=== PATIENT | male | born 1960 | race Caucasian/White ===

== ENCOUNTER 2022-03-13 12:01 | Emergency (ER) | payer SELFPAY ==
--- NOTE | 2022-03-13 12:11 | XRR_ITS ---
PROCEDURE INFORMATION: Exam: XR Right Ankle Exam date and time: 03/13/2022 12:27 PM Age: 61 years old Clinical indication: Injury or trauma; Other: Tree fell on PT; Blunt trauma; Ankle; Right TECHNIQUE: Imaging protocol: Radiologic exam of the Right ankle. Views: 3 or more views. Total images: 3 COMPARISON: No relevant prior studies available. FINDINGS: Bones/joints: Segmental fracture of distal right fibular diaphysis half a shaft's with anterior displacement of the distal fragment. Nondisplaced posterior malleolar fracture. No additional fracture, subluxation, or dislocation detected. Chronic avulsive changes are noted at the medial malleolus. A heel spur is present. Soft tissues: Anterior and lateral soft tissue swelling is evident. XR/XR ankle RT min 3V* [id number] IMPRESSION: 1. Segmental fracture of distal right fibular diaphysis half a shaft's with anterior displacement of the distal fragment. 2. Anterior and lateral soft tissue swelling is evident. 3. Nondisplaced posterior malleolar fracture.
--- NOTE | 2022-03-13 12:11 | CT_ITS ---
WS: [id number] CT CERVICAL TRAUMA TECHNIQUE: Noncontrast CT of the cervical spine with coronal and sagittal reformatted images. CLINICAL INFORMATION: trauma COMPARISON: None. DLP: 1493.[address] scans at [facility] use at least one of these dose optimization techniques: automated e xposure control; mA and/or kV adjustment per patient size (includes targeted exams where dose is matc hed to clinical indication); or iterative reconstruction. FINDINGS: Straightening of the normal cervical lordosis. Slight anterolisthesis C4 on C5 and C5 on C6. Mild spo ndylitic changes. Normal craniocervical junction. Normal C1-C2 articulation. Dens is normal in appear ance. Normal occipital condyles. No high-grade spinal canal narrowing. Normal C1 ring. No evidence of acute fracture or dislocation. Normal prevertebral soft tissues. Mastoids air cells are well aerated. CT/CT cervical spin wo con* [id number] IMPRESSION: No evidence of acute fracture or dislocation.
--- NOTE | 2022-03-13 12:11 | CT_ITS ---
WS: [id number] CT HEAD TECHNIQUE: Noncontrast CT of the head obtained from the skullbase to the vertex. CLINICAL INFORMATION: trauma COMPARISON: None. DLP: 1493.[address] scans at [facility] use at least one of these dose optimization techniques: automated e xposure control; mA and/or kV adjustment per patient size (includes targeted exams where dose is matc hed to clinical indication); or iterative reconstruction. FINDINGS: No evidence of intracranial hemorrhage or mass effect. Ventricular system and basal cisterns are weiss nt. Minimal small vessel changes. No significant parenchymal volume loss. No extra-axial fluid collec tions. No evidence of mass or mass effect. Normal alfaro-white differentiation. Paranasal sinuses and mastoid air cells are well aerated. . Left ear laceration. CT/CT head wo con* [id number] IMPRESSION: 1. No evidence of intracranial hemorrhage or mass effect. 2. Minimal small vessel changes. No significant parenchymal volume loss. 3. No acute intracranial findings.
--- NOTE | 2022-03-13 12:11 | XRR_ITS ---
PROCEDURE INFORMATION: Exam: XR Right Tibia and Fibula Exam date and time: 03/13/2022 12:27 PM Age: 61 years old Clinical indication: Injury or trauma; Other: Tree fell on PT; Blunt trauma; Lower leg; Right TECHNIQUE: Imaging protocol: Radiologic exam of the Right tibia and fibula. Views: 2 views. Total images: 2 COMPARISON: No relevant prior studies available. FINDINGS: Bones/joints: Segmental fracture of distal diaphysis of right fibula with approximately 1/2 shaft's width displacement of the distal fragment. Mild marginal osteophytes are noted. Soft tissues: Lateral soft tissue swelling is evident. XR/XR tibia fibula RT 2V [id number] IMPRESSION: 1. Segmental fracture of distal diaphysis of right fibula with approximately 1/2 shaft's width displacement of the distal fragment. 2. Lateral soft tissue swelling is evident.
[2022-03-13 12:41] VITALS: RESP 16; O2SAT 97
[2022-03-13] MEDS: HYDROmorphone 1 mg/mL INJ 1 mL IVP ×2 (12:41→13:45)
[2022-03-13] MEDS: ondansetron 2 mg/ML SDV 2 mL 4 MG IVP (12:45)
[2022-03-13] MEDS: tetanus-dipt-pertussis 0.5 mL SDV IM (12:45)
--- NOTE | 2022-03-13 12:46 | PC.NURSE ---
DR. [place] APPROVED ADMINISTRATION OF HYDROMORPHONE AFTER PT VERBALIZED HYDROCODONE ALLERGY
[2022-03-13] MEDS: lidocaine 1% INJ 20 mL MDV (mL) INTRADERMA (12:52)
--- NOTE | 2022-03-13 12:52 | PC.NURSE ---
LIDOCAINE ADMINISTERED BY [facility]
--- NOTE | 2022-03-13 12:55 | ED_ITS ---
HPI - General Adult General: Chief complaint: Trauma Stated complaint: Tree fell on him Time Seen by Provider: 03/13/22 12:09 Source: patient Mode of arrival: ambulatory Limitations: no limitations History of Present Illness: 61-year-old male states he was working cutting down a tree states that portion a tree and fell onto him and fell onto his left side hitting left side of the head does have a laceration states he then rolled and hit his right leg. He has deformity his right lower leg states the main pain is in his right lower leg he rates it an 8 out of 10 he has some slight neck pain denies any chest or abdominal pain denies any hip pain. Associated symptoms: Reports headache(s); Deny chest pain, dyspnea, nausea, rash or vomiting Review of Systems Const: Denies: fever(s), chills, body aches or change in appetite Eyes: Denies: blurry vision or eye discomfort ENMT: Denies: throat pain or dental pain Card: Denies: chest pain Resp: Denies: dyspnea GI: Denies: abdominal pain, nausea, vomiting or diarrhea : Denies: dysuria Musc: Reports: neck pain and extremity pain; Denies: back pain Skin/Breast: Denies: rash Neuro: Reports: headache(s) Psych: Denies: depression Tomi/Lymph: Denies: easy bruising All/Imm: Denies: urticaria PFSH ED PFSH: Medical History (Updated 03/13/22 @ 13:41 by Familia Guzman MD) No pertinent family history Social History (Updated 03/13/22 @ 12:57 by Familia Guzamn MD) Substance/Drug Use: never Physical Exam Const: COMMON NORMALS: no acute distress, patient oriented x3 and healthy appearing HENMT: OTHER: Laceration noted to left earlobe Eye: COMMON NORMALS: Equal, round and reactive pupils present and EOMs intact bilaterally PUPIL: Yes Equal, round and reactive pupils present Neck/C-Spine: COMMON NORMALS: full ROM and supple Chest: COMMONS NORMALS: normal inspection of the chest and normal palpation of entire chest wall Resp: COMMON NORMALS: normal respiratory effort, No retractions, No use of accessory muscles and clear to auscultation bilaterally AUSCULTATION: clear to auscultation bilaterally Cardio: COMMON NORMALS: regular rate, regular rhythm and No murmurs present (Cardio) RATE: regular rate RHYTHM: regular rhythm GI: COMMON NORMALS: Normal to inspection, nondistended, normoactive bowel sounds present, Soft to palpation, non-tender and no masses PALPATION: Yes Soft to palpation Extremity: COMMON NORMALS: full ROM NARRATIVE EXTREMITY EXAM: Obvious deformity to distal right lower leg no signs of compartment syndrome compartments are soft distal pulses intact Neuro: COMMON NORMALS: patient oriented x3, moves all extremities and no focal motor deficits Psych: COMMON NORMALS: mental status grossly normal, Normal thought process pr esent and cooperative THOUGHT PROCESS: Normal thought process present Skin: COMMON NORMALS: no rashes or lesions noted and no wounds GENERAL SKIN EXAM: no rashes or lesions noted Course Vital Signs: Vital signs: Vital Signs Temperature 97.8 F 03/13/22 13:08 Pulse Rate 60 03/13/22 13:08 Respiratory Rate 16 03/13/22 13:08 Blood Pressure 214/110 03/13/22 13:08 Pulse Oximetry 97 03/13/22 13:08 Oxygen Delivery Me thod 03/13/22 13:08 [facility] - General Adult Medical Decision Making Patient presents here with fibula fracture after tree fell and he also had a laceration to his left ear that was repaired here CT scans are normal spoke to orthopedist we will place patient in a walking boot he is to be nonweightbearing until he follows up with orthopedics he has crutches at home. Lab Data Radiology Impressions Ankle X-Ray 03/13/22 12:11 IMPRESSION: 1. Segmental fracture of distal right fibular diaphysis half a shaft's with anterior displacement of the distal fragment. 2. Anterior and lateral soft tissue swelling is evident. 3. Nondisplaced posterior malleolar fracture. Cervical Spine CT 03/13/22 12:11 IMPRESSION: No evidence of acute fracture or dislocation. Head CT 03/13/22 12:11 IMPRESSION: 1. No evidence of intracranial hemorrhage or mass effect. 2. Minimal small vessel changes. No significant parenchymal volume loss. 3. No acute intracranial findings. Tibia/Fibula X-Ray 03/13/22 12:11 IMPRESSION: 1. Segmental fracture of distal diaphysis of right fibula with approximately 1/2 shaft's width displacement of the distal fragment. 2. Lateral soft tissue swelling is evident. Discharge Plan Discharge Patient Disposition: Home Clinical Impression: Head injury, Laceration of ear Closed fibular fracture Qualifiers: Encounter type: initial encounter Fibula location: distal Fracture morphology: unspecified fracture morphology Laterality: right Qualified Code(s): S82.831A - Other fracture of upper and lower end of right fibula, initial encounter for closed fracture Prescriptions: New Naprosyn 500 mg tablet 500 mg PO BID PRN (Reason: pain) Qty: 20 0RF tramadol 50 mg tablet 50 mg PO Q8H PRN (Reason: pain) Qty: 20 0RF No Action multivitamin Tablet 1 tab PO QAM Aspir-81 81 mg Tablet,Delayed Release (Dr/Ec) 81 mg PO QAM CoQ-10 100 mg Capsule 100 mg PO QAM Vitamin D3 50 mcg (2,000 unit) Capsule 50 mcg PO QAM turmeric 400 mg Capsule 1,200 mg PO QAM Collagen Liquid 2 tbsp PO BEDTIME Relief Factor 4 cap PO TID Testosterone 50mg-Progest 30mg See Rx Instructions .ROUTE .COMPLEX Rx Instructions: 4 clicks daily Discharge Orders: Discharge ED (Routine); Ordered 03/13/22 Ordered By: Familia Guzman Other Ambulatory Orders: DME: Miscellaneous (Order) Location: None Selected Ordered By: Familia Guzman Referrals: Macho Agee MD [Primary Care Provider] - Discharge Diet: Advance as tolerated Discharge Activity: Resume usual activity Activity Restrictions/Additional Instructions: suture removal in 7 days Coding Level of Care Code ED Parts Washer for Meche[employer] Fwd Exam Comprehensive
[2022-03-13 13:08] VITALS: BP 214/110; PULSE 60; RESP 16; TEMP 36.6; O2SAT 97
--- NOTE | 2022-03-13 13:15 | W.ED.TRAUMA ---
HPI - Trauma General: Chief Complaint: Trauma Stated Complaint: Tree fell on him Time Seen by Provider: 03/13/22 12:09 History of Present Illness: chart created in error this patient was seen by Dr. Guzman [facility] ED PFSH: Medical History (Updated 03/21/22 @ 00:02 by ) No pertinent family history Procedures Laceration Laceration 1: Site: face (ear) Side (If applicable): left Size (cm): 2.5 Description: flap and irregular Depth: simple, single layer Local Anesthetic: lidocaine 1% Amount of anesthesia used (mL): 2 Pre-repair: wound explored and irrigated extensively Skin layer closed with: nylon Size (cm): 5-0 Number of sutures: 15 Technique: simple, interrupted Course Vital Signs: Vital signs: Vital Signs Temperature 97.8 F 03/13/22 13:08 Pulse Rate 68 03/13/22 14:31 Respiratory Rate 17 03/13/22 14:31 Blood Pressure 183/110 03/13/22 14:31 Pulse Oximetry 96 03/13/22 14:31 Oxygen Delivery Me thod 03/13/22 13:08 MDM - Trauma Medical Decision Making Chart created in error seen by Dr. Guzman Lab Data Radiology Impressions Ankle X-Ray 03/13/22 12:11 IMPRESSION: 1. Segmental fracture of distal right fibular diaphysis half a shaft's with anterior displacement of the distal fragment. 2. Anterior and lateral soft tissue swelling is evident. 3. Nondisplaced posterior malleolar fracture. Cervical Spine CT 03/13/22 12:11 IMPRESSION: No evidence of acute fracture or dislocation. Head CT 03/13/22 12:11 IMPRESSION: 1. No evidence of intracranial hemorrhage or mass effect. 2. Minimal small vessel changes. No significant parenchymal volume loss. 3. No acute intracranial findings. Tibia/Fibula X-Ray 03/13/22 12:11 IMPRESSION: 1. Segmental fracture of distal diaphysis of right fibula with approximately 1/2 shaft's width displacement of the distal fragment. 2. Lateral soft tissue swelling is evident. Discharge Plan Discharge Patient Disposition: Home Clinical Impression: Head injury, Laceration of ear, Closed fibular fracture Prescriptions: New Naprosyn 500 mg tablet 500 mg PO BID PRN (Reason: pain) Qty: 20 0RF tramadol 50 mg tablet 50 mg PO Q8H PRN (Reason: pain) Qty: 20 0RF No Action multivitamin Tablet 1 tab PO QAM Aspir-81 81 mg Tablet,Delayed Release (Dr/Ec) 81 mg PO QAM CoQ-10 100 mg Capsule 100 mg PO QAM Vitamin D3 50 mcg (2,000 unit) Capsule 50 mcg PO QAM turmeric 400 mg Capsule 1,200 mg PO QAM Collagen Liquid 2 tbsp PO BEDTIME Relief Factor 4 cap PO TID Testosterone 50mg-Progest 30mg See Rx Instructions .ROUTE .COMPLEX Rx Instructions: 4 clicks daily Discharge Orders: Discharge ED (Routine); Ordered 03/13/22 Ordered By: Familia Guzman Other Ambulatory Orders: DME: Miscellaneous (Order) Location: None Selected Ordered By: Familia Guzman Referrals: Macho Agee MD [Primary Care Provider] - Jose Cancino MD [Physician] - 1-3 days Discharge Diet: Advance as tolerated Discharge Activity: Resume usual activity Patient Instructions: Leg Fracture (ED), Head Injury (ED) Activity Restrictions/Additional Instructions: suture removal in 7 days Coding Level of Care Code ED Senior Software Qa Analyst for Trisha Perez
[2022-03-13 13:45] VITALS: RESP 13; O2SAT 96
[2022-03-13 14:31] VITALS: BP 183/110; PULSE 68; RESP 17; O2SAT 96
--- NOTE | 2022-03-13 14:42 | DCPLANNER ---
Addendum entered by Ladan Muller 03/21/22 15:29: This appointment was cancelled Addendum entered by Ladan Muller 03/14/22 07:49: Patient has a follow up appointment scheduled for Thursday, March 17, 2022 at 9:[address] Cancino at ortho. Clinic will call patient with appointment information. Original Note: is project manager had message to schedule a follow up appointment for patient with ortho. is project manager sent patients information to the front office staff at ortho. Patients information will be printed and reviewed. Clinic will call patient with appointment information.
== END 2022-03-13 14:37 | disposition home or self-care (01) ==
PROVIDERS: Emergency Provider Emergency Medicine; PCP Family Medicine
DX: S09.90XA Unspecified injury of head, initial encounter (principal); S01.312A Laceration without foreign body of left ear, initial encounter; S82.831A Other fracture of upper and lower end of right fibula, initial encounter for closed fracture; Z79.82 Long term (current) use of aspirin; W20.8XXA Other cause of strike by thrown, projected or falling object, initial encounter; Z23 Encounter for immunization
CPT/HCPCS: 70450; 72125; 73590; 73610; 90471; 90715; 96374; 96375; 96376; 97760; 99285; J1170; J2405; L4361